=== PATIENT | female | born 1955 ===

== ENCOUNTER → 2024-05-21 14:26 | Outpatient (REF) | payer MEDICARE, SELFPAY | LOC: RAD 14:26 | PROVIDERS: ATTENDING PHYSICIAN Family Medicine; REFERRING PHYSICIAN Orthopaedic Surgery | DX: M25.561 Pain in right knee (principal) | CPT/HCPCS: 73564 ==

== ENCOUNTER 2024-10-05 11:56 | Emergency (ER) | payer MEDICARE, SELFPAY ==
[2024-10-05 12:00] VITALS: BP 118/61
[2024-10-05 12:29] LABS: % Basophils 0.5 % (0-2); % Eosinophils 1.4 % (0-6); % Immature Granulocytes 0.5 % (0-0.5); % Lymphocytes 30.4 % (20.5-51.1); % Monocytes 4.1 % (1.7-9.3); % Neutrophils 63.1 % (42.2-75.2); Absolute Eosinophils 0.1 10^3/uL (0-0.7); Absolute Lymphocytes 1.3 10^3/uL (1.2-3.4); Absolute Monocytes 0.2 10^3/uL (0.1-0.6); Absolute Neutrophils 2.8 10^3/uL (1.4-6.5); Hematocrit 36.3 % (37.0-47.0); Hemoglobin 11.5 g/dL (12.0-16.0); Mean Corp Hgb Conc. 31.7 g/dL (33.0-37.0); Mean Corpuscular Hgb 30.3 pg (27.0-31.0); Mean Corpuscular Volume 95.8 fL (81.0-99.0); Mean Platelet Volume 9.4 fL (7.4-10.4); Nucleated Red Blood Cells % 0 %; Platelet Count 288 10^3/uL (130-400); Red Blood Cell Count 3.79 10^6/uL (4.20-5.40); Red Cell Dist. Width 14.2 % (11.5-14.5); White Blood Cell Count 4.4 10^3/uL (4.8-10.8)
[2024-10-05 12:39] LABS: ALT (SGPT) 27 U/L (0-35); AST (SGOT) 32 U/L (14-36); Albumin 2.8 g/dl (3.5-5.0); Alkaline Phosphatase 147 U/L (38-126); Blood Urea Nitrogen 13 mg/dl (7-17); Calcium 8.4 mg/dl (8.4-10.2); Carbon Dioxide 28 mmol/L (22-30); Chloride 105 mmol/L (98-107); Glucose 100 mg/dl (70-99); Lipase 108 U/L (23-300); Potassium 3.2 mmol/L (3.5-5.1); Sodium 140 mmol/L (135-145); Total Bilirubin 0.4 mg/dl (0.2-1.3); eGFR > 60.00
--- NOTE | 2024-10-05 13:55 | ED.GENMED ---
History of Present Illness
General
Chief Complaint: Weakness
Time Seen by Provider: 10/05/24 13:38
History of Present Illness
History of Present Illness:
69-year-old female presenting with generalized fatigue worsening for the past 1 week. Patient reports shortness of breath with exertion, unable to walk upstairs now for the past 2 weeks. Patient denies chest pain. Patient reports episodes of
waking up at 3 AM with chills, diaphoresis and subjective fever. Patient states that she coughs at the time. Patient states that when she wakes up in the morning symptoms resolved but continues to have myalgias and generalized fatigue. Patient
reports history of anemia for which she receives iron infusions most recently in July 2024. Patient states that she had labs drawn on October 01 showing hemoglobin of 10.5. Patient reports 40 pound unintentional weight loss over the past 6
months. Patient states that her last colonoscopy was 4 years ago, unremarkable. Patient denies any black or bloody stools and no vaginal bleeding. Patient states that she took a COVID test which was negative yesterday. Patient states that she
had a full cardiac workup in March 2024 including cardiac catheterization which was negative, no cardiac stents placed. Hematology: Dr. Jeong
Phy Exam
Physical Exam
Physical Exam:
General: Alert, no acute distress
Head: NCAT
Eyes: clear conjunctiva
Neck: supple
Cardiac: regular rate and rhythm, no murmur
Lungs: clear to auscultation bilaterally. No wheezes, rales, or rhonchi. Speaking full unlabored sentences. No respiratory distress.
Abdomen: soft, nondistended nontender. No rebound or guarding.
MSK: no lower extremity edema bilaterally. No deformity
Skin: warm, dry
Neuro: Alert and oriented x3. no focal deficits
Course
Orders/Labs/Results
Orders:
Orders
10/05/24 12:04
Electrocardiogram (*1) Urgent
Reason for Study: Shortness of Breath
10/05/24 12:05
EKG- Treatment ONCE
10/05/24 12:08
Complete Blood Count/With Diff Urgent
Comprehensive Metabolic Panel Urgent
Lipase Urgent
10/05/24 13:53
0.9% Sodium Chloride 1000 ml [Nss] 1,000 ml IV BOLUS
CXR2 [CR Chest - 2 Views ] Urgent
Comment:
Reason For Exam: sob
10/05/24 13:55
Ondansetron Injectable [Zofran] 4 mg IV NOW STA
Potassium Chloride [KCl] 40 meq PO NOW STA
10/05/24 14:12
DDimer [D-Dimer] Urgent
Troponin I Urgent
UA Reflex to Culture [Urinalysis Reflex To Culture] Urgent
Date Specimen was Collected: 10/05/24
Time Specimen was Collected: 14:08
Urine Microscopic Reflex Cult Urgent
Influenza A+B Rapid Molecular Urgent
AARON Source: Nasal Swab
Specimen Description:
Urine Culture Urgent
AARON Source: U
Specimen Description:
Obtained by: Random
Date Specimen was Collected: 10/05/24
Time Specimen was Collected: 14:08
10/05/24 15:31
Cephalexin Monohydrate [Keflex] 500 mg PO NOW STA
Abnormal Lab Results
10/05/24 10/05/24
12:08 14:12
WBC 4.4 L 10^3/uL
(4.8-10.8)
RBC 3.79 L 10^6/uL
(4.20-5.40)
Hgb 11.5 L g/dL
(12.0-16.0)
Hct 36.3 L %
(37.0-47.0)
MCHC 31.7 L g/dL
(33.0-37.0)
Potassium 3.2 L mmol/L
(3.5-5.1)
Glucose 100 H mg/dl
(70-99)
Alkaline Phosphatase 147 H U/L
(38-126)
Total Protein 5.0 L g/dl
(6.3-8.2)
Albumin 2.8 L g/dl
(3.5-5.0)
Urine Ketones Trace A
(Negative)
Urine Nitrite (Reflex) Positive A
(Negative)
Urine Bilirubin 2+ A
(Negative)
Leukocyte Esterase Rfl Trace A
(Negative)
Urine Bacteria (Reflex) Moderate A
(Negative)
10/05/24 12:08
10/05/24 12:08
Vital Signs
Initial and Last Documented VS:
Initial Vital Signs
Temp Pulse Resp BP Pulse Ox
97.8 F 76 16 118/61 98
10/05/24 12:00 10/05/24 12:00 10/05/24 12:00 10/05/24 12:00 10/05/24 12:00
Last Documented Vital Signs
Temp Pulse Resp BP Pulse Ox
97.8 F 75 22 143/86 99
10/05/24 12:00 10/05/24 14:30 10/05/24 14:30 10/05/24 14:14 10/05/24 14:30
MDM/Problems Addressed
Differential Diagnosis Includes:
Anemia, electrolyte abnormality, UTI, influenza, viral syndrome, pneumonia, PE, malignancy
MDM/Problems Addressed:
Labs reviewed. Hemoglobin 11.5 (was 10.5 4 days ago). D-dimer within normal limits, low suspicion for PE. Mild hypokalemia with potassium 3.2. UA consistent with UTI. Chest x-ray clear no focal infiltrate or consolidation. Influenza negative.
Will start on Keflex for UTI. Vital signs within normal limits. Discussed results with pt at bedside. Ambulatory with steady gait. Stable for discharge with PCP follow-up
*Critical Care Note
Total Time (30-74mins, 75-104mins- exclusive of procedures): Not Applicable
ED Attending Note
-
Portions of this chart may have been created with voice recognition software.� Occasional wrong word or��sound alike� substitutions may have occurred due to the inherent limitations of voice recognition software.
Discharge Plan
Departure
Patient Disposition: Home (Routine Discharge)
Date of Disposition: 10/05/24
Time of Disposition: 15:50
Patient with high blood pressure during this ER visit?: Yes
Discharge Problem:
Acute UTI
Instructions: Urinary Tract Infection, Adult ED, BLOOD PRESSURE
Prescriptions:
New
cephalexin 500 mg capsule
500 mg PO TID 7 Days Qty: 21 0RF
Referrals:
Raghav Vizcarra, DO [Family Provider] -
Activity Restrictions/Additional Instructions:
Take Keflex 3 times daily for 7 days
Follow up with primary care doctor in 1-2 days
Return to the emergency department for fever, persistent vomiting, or new/worsening symptoms
Interventions
Interventions:
*Risk Screen - Suicide Last Done: 10/05/24 14:34
*General Assessment Last Done: 10/05/24 14:34
*Neglect/Abuse Screening Last Done: 10/05/24 14:34
ED- Fall Risk Assessment Last Done: 10/05/24 14:34
*ED COVID-19 Vaccine History Last Done: 10/05/24 14:34
*Nursing Disposition Last Done: 10/05/24 16:00
ED- Cardiac Assessment Last Done: 10/05/24 14:34
ED- Neurological Assessment Last Done: 10/05/24 14:34
ED- Pulmonary Assessment Last Done: 10/05/24 14:34
Discharge Date and Time
Discharge Date/Time: 10/05/24 16:01
Print Language: SWAZI
[2024-10-05 14:12] VITALS: BMI 29.9
[2024-10-05 14:14] VITALS: BP 143/86
[2024-10-05] MEDS: KCL 40 MEQ PO (14:27)
[2024-10-05] MEDS: ZOFRAN 4 MG IV (14:27)
[2024-10-05] MEDS: NSS 1000 IV (14:27)
[2024-10-05 14:53] LABS: Urine Albumin Trace (Neg - Trace); Urine Bilirubin 2+ (Negative); Urine Character Clear (Clear); Urine Color Amber; Urine Glucose Negative (Negative); Urine Ketone Trace (Negative); Urine Leukocyte Trace (Negative); Urine Nitrite Positive (Negative); Urine Occult Blood Negative (Negative); Urine Specific Gravity 1.015 (<1.030); Urine Urobilinogen 1+ (Neg - 1+)
[2024-10-05 14:57] LABS: D-Dimer 0.45 ug/mlFEU (0.00-0.50)
[2024-10-05 15:21] LABS: Urine Mucus Many
[2024-10-05 15:23] LABS: Urine Red Blood Cell 0-2 /HPF (0-2)
[2024-10-05 15:24] LABS: Urine Bacteria Moderate (Negative); Urine Calcium Oxalate Crystals Seen; Urine White Cell 0-2 /HPF (0-5)
[2024-10-05 15:35] LABS: Troponin I 0.027 ng/ml
[2024-10-05] MEDS: KEFLEX 500 MG PO (15:56)
== END 2024-10-05 16:01 | disposition home or self-care (01) ==
LOC: EMR 11:56
PROVIDERS: Emergency Medicine; EMERGENCY PHYSICIAN Emergency Medicine; FAMILY PHYSICIAN Family Medicine
DX: N39.0 Urinary tract infection, site not specified (principal); E87.6 Hypokalemia
CPT/HCPCS: 99283; 96374; 96361; 71046; 80053; 81003; 81015; 83690; 84484; 85025; 85379; 87086; 87502; 93005

== ENCOUNTER 2024-10-25 07:03 | Inpatient (IN) | payer MEDICARE, SELFPAY ==
[2024-10-20] VITALS (9 sets, daily range): BP systolic 116–156; BP diastolic 60–78; BMI 29.2; BMI 28.7
[2024-10-20 13:07] LABS: % Basophils 1.4 % (0-2); % Eosinophils 1.2 % (0-6); % Immature Granulocytes 0.4 % (0-0.5); % Lymphocytes 42.3 % (20.5-51.1); % Neutrophils 48.7 % (42.2-75.2); Absolute Basophils 0.1 10^3/uL (0-0.2); Absolute Eosinophils 0.1 10^3/uL (0-0.7); Absolute Lymphocytes 2.4 10^3/uL (1.2-3.4); Absolute Monocytes 0.3 10^3/uL (0.1-0.6); Absolute Neutrophils 2.8 10^3/uL (1.4-6.5); Hematocrit 37.4 % (37.0-47.0); Hemoglobin 12.3 g/dL (12.0-16.0); Mean Corp Hgb Conc. 32.9 g/dL (33.0-37.0); Mean Corpuscular Hgb 30.9 pg (27.0-31.0); Mean Platelet Volume 9.7 fL (7.4-10.4); Nucleated Red Blood Cells % 0 %; Platelet Count 291 10^3/uL (130-400); Red Blood Cell Count 3.98 10^6/uL (4.20-5.40); Red Cell Dist. Width 13.2 % (11.5-14.5); White Blood Cell Count 5.7 10^3/uL (4.8-10.8)
[2024-10-20 13:23] LABS: ALT (SGPT) 35 U/L (0-35); AST (SGOT) 49 U/L (14-36); Albumin 2.8 g/dl (3.5-5.0); Alkaline Phosphatase 161 U/L (38-126); Blood Urea Nitrogen 16 mg/dl (7-17); Calcium 8.5 mg/dl (8.4-10.2); Carbon Dioxide 26 mmol/L (22-30); Chloride 103 mmol/L (98-107); Glucose 111 mg/dl (70-99); Potassium 4.1 mmol/L (3.5-5.1); Sodium 135 mmol/L (135-145); Total Bilirubin 0.4 mg/dl (0.2-1.3); Total Protein 5.2 g/dl (6.3-8.2); eGFR 55.07
[2024-10-20 13:54] LABS: TSH Reflex To Free T4 0.02 uIU/ml (0.47-4.68)
[2024-10-20 14:23] LABS: Free T4 1.42 ng/dl (0.78-2.19)
--- NOTE | 2024-10-20 15:25 | ED.GENMED ---
History of Present Illness
General
Chief Complaint: Fainting/Passed Out
Time Seen by Provider: 10/20/24 15:14
History of Present Illness
History of Present Illness:
69-year-old woman with history of hypothyroidism, anemia presenting to the emergency department with nausea vomiting and a syncopal event. Patient states that this has been ongoing for a few weeks now. She states for the past month she has lost
about 10 pounds. She has minimal appetite with several episodes of nausea and vomiting. She states that she did not have any episodes today but did have some yesterday. No diarrhea. She did go to her primary care doctor who checked some blood
work and was unremarkable. She also states that she is been having frequent episodes of syncope. She has passed out 3 times this week. Usually she has a prodrome that includes a tunnel vision before she syncopized this however today she only
noticed that her legs were about to give out and then she fell from standing. She did not think she hit her head today however noticed a sore spot on the top of her head. She was able to get up afterwards. No confusion after the event. However
patient does note that occasionally throughout the month she has had some word finding difficulty. No numbness tingling to the extremities. No isolated extremity weakness during those events. No fevers chills. No chest pain.
Phy Exam
Physical Exam
Physical Exam:
GENERAL: in no acute distress, appears pale
HEENT: normocephalic, extraocular movements intact, moist oral mucosa
NECK: normal inspection
RESPIRATORY: no respiratory distress, clear to auscultation bilaterally
CARDIOVASCULAR: regular rate and rhythm
ABDOMEN/: soft, non-distended, non-tender to palpation, no rebound or guarding
EXTREMITIES: non-tender, no edema/swelling
NEUROLOGIC: awake and alert, moves all extremities, equal strength in upper and lower extremities, sensation intact, pupils equal and reactive bilaterally
SKIN: warm
Course
Orders/Labs/Results
Orders:
Orders
10/20/24 12:36
Electrocardiogram (*1) Urgent
Reason for Study: Syncope
EKG- Treatment ONCE
10/20/24 13:00
Type+Screen Urgent
Complete Blood Count/With Diff Urgent
Comprehensive Metabolic Panel Urgent
Free T4 Urgent
TSH Reflex To Free T4 Urgent
10/20/24 13:08
ABO2 Urgent
BBK Wristband Number:
Associate notified that ABO2 has been ordered: [id number]
Date: 10/20/24
Time: 13:09
Telegraph Inspector ID: [id number]
10/20/24 15:25
CT Abd/pelvis W Iv Cont Urgent
Comment:
Reason For Exam: nausea, vomitting, decrease PO
CT Head W/o Iv Contrast Urgent
Comment:
Reason For Exam: fall
0.9% Sodium Chloride 1000 ml [Nss] 1,000 ml IV BOLUS
10/20/24 15:33
Urinalysis Reflex To Culture Urgent
Date Specimen was Collected: 10/20/24
Time Specimen was Collected: 15:18
Urine Microscopic Reflex Cult Urgent
Abnormal Lab Results
10/20/24 10/20/24
13:00 15:33
RBC 3.98 L 10^6/uL
(4.20-5.40)
MCHC 32.9 L g/dL
(33.0-37.0)
Creatinine 1.1 H mg/dL
(0.6-1.0)
Glucose 111 H mg/dl
(70-99)
AST 49 H U/L
(14-36)
Alkaline Phosphatase 161 H U/L
(38-126)
Total Protein 5.2 L g/dl
(6.3-8.2)
Albumin 2.8 L g/dl
(3.5-5.0)
TSH (Reflex) 0.02 L uIU/ml
(0.47-4.68)
Urine Ketones Trace A
(Negative)
Urine Bilirubin 1+ A
(Negative)
Urine Urobilinogen 3+ A
(Neg - 1+)
Leukocyte Esterase Rfl Trace A
(Negative)
Urine RBC 3-6 A /HPF
(0-2)
Urine Bacteria (Reflex) Few A
(Negative)
10/20/24 13:00
10/20/24 13:00
Vital Signs
Initial and Last Documented VS:
Initial Vital Signs
Temp Pulse Resp BP Pulse Ox
98 F 78 18 128/67 97
10/20/24 12:45 10/20/24 12:45 10/20/24 12:45 10/20/24 12:45 10/20/24 12:45
Last Documented Vital Signs
Temp Pulse Resp BP Pulse Ox
98 F 78 18 117/61 96
10/20/24 12:45 10/20/24 12:45 10/20/24 12:45 10/20/24 16:00 10/20/24 16:00
MDM/Problems Addressed
Differential Diagnosis Includes:
Patient is a 69-year-old woman presenting to the emergency department with many weeks worth of nausea vomiting weight loss and now syncope. Vitals are unremarkable and exam does show woman who is slightly pale appearing but does have a benign soft
abdomen. Differential is broad but consists of malignancy versus metabolic derangement versus anemia versus UTI. Syncope could be related to orthostatic given that she usually has a prodrome and they occur from changes in position however today
was without a prodrome. Given the word finding difficulty episodes concern for TIA as well. Will check blood work urine EKG CT scan of the head as well as CT abdomen. Will give IV fluids.
*Critical Care Note
Total Time (30-74mins, 75-104mins- exclusive of procedures): Not Applicable
Update Note
Update Note:
Blood work notable for hemoglobin of 12.3 which is improved from prior. Creatinine is similar to prior as well. EKG per my interpretation normal sinus rhythm
CT scan of the head unremarkable CT scan of the abdomen without any acute findings. Given the syncope without prodrome and the word finding difficulty patient would benefit from admission. Of note patient does state that this with the word finding
difficulty has happened once before but she did not have a workup done for it. Discussed with hospitalist who excepted patient to their service
ED Attending Note
-
Portions of this chart may have been created with voice recognition software.� Occasional wrong word or��sound alike� substitutions may have occurred due to the inherent limitations of voice recognition software.
Discharge Plan
Departure
Patient Disposition: Admit
Date of Disposition: 10/20/24
Time of Disposition: 17:21
Presentation/result/management discussed w/ accepting MD/DO: Hospitalist
Discharge Problem:
Syncope, Word finding difficulty
Prescriptions:
No Action
cephalexin 500 mg capsule
500 mg PO TID 7 Days Qty: 21 0RF
Referrals:
Raghav Vizcarra DO [Family Provider] -
Interventions
Interventions:
*Risk Screen - Suicide Last Done: 10/20/24 15:11
*General Assessment Last Done: 10/20/24 15:11
*Neglect/Abuse Screening Last Done: 10/20/24 15:11
ED- Fall Risk Assessment Last Done: 10/20/24 15:11
*ED COVID-19 Vaccine History Last Done: 10/20/24 15:11
ED- Cardiac Assessment Last Done: 10/20/24 15:11
ED- Neurological Assessment Last Done: 10/20/24 15:11
Discharge Date and Time
Print Language: BOLIVIAN
[2024-10-20] MEDS: NSS 1000 IV ×2 (15:33→20:06)
[2024-10-20 15:44] LABS: Urine Albumin Trace (Neg - Trace); Urine Bilirubin 1+ (Negative); Urine Character Clear (Clear); Urine Color Yellow; Urine Glucose Negative (Negative); Urine Ketone Trace (Negative); Urine Leukocyte Trace (Negative); Urine Nitrite Negative (Negative); Urine Occult Blood Negative (Negative); Urine Specific Gravity 1.015 (<1.030); Urine Urobilinogen 3+ (Neg - 1+)
[2024-10-20 15:50] LABS: Urine Mucus Moderate
[2024-10-20 15:51] LABS: Urine Urothelial Cell 0-2 /LPF (FEW)
[2024-10-20 15:52] LABS: Urine Bacteria Few (Negative)
--- NOTE | 2024-10-20 17:51 | HPS.HSE ---
Family Physician
-
Family Physician: Raghav Vizcarra
Chief Complaint
-
syncope, N/V, abnormal speech
History of Present Illness
69F HX hypothyroidism, anemia seen at ER
- acute onset of with several episodes of nausea and vomiting. No diarrhea. Poor appetite
- has been ongoing for a few weeks
- associated with frequent episodes of syncope; passed out 3 times this week.
- reports prodrome sx preeceded by tunnel vision before she syncopized
- however today she only noticed that her legs were about to give out and then she fell from standing
- No confusion after the event
- did not think she hit her head today however noticed a sore spot on the top of her head.
- lost about 10 pounds ovr 1 month
- minimal appetite
- occasionally throughout the month she has had some word finding difficulty.
- No numbness tingling to the extremities.
- No isolated extremity weakness during those events.
Medical History
Past Medical History
Past Medical History: Reports Hypothyroidism
Past Surgical History: Reports None
Social History
Tobacco: Non-smoker
Alcohol: Other
Family History
Family History: Not pertinent
Allergies / Home Medications
Allergies reflects when Allergies were last updated in [facility].
Home Medications with original date entered in [facility]
Allergy/Medication List:
Allergies
Allergy/AdvReac Type Severity Reaction Status Date / Time
No Known Allergies Allergy Verified 10/05/24 12:04
Home Medications
[id number]-[id number]-kvyuymkj 250 mg-250 mg-65 mg tablet (Excedrin Migraine) 2 tab PO Q6HPRN PRN headache 10/20/24
cyanocobalamin (vitamin B-12) 1,000 mcg/mL injection solution 1,000 mcg SC WE 10/20/24
desvenlafaxine succinate 50 mg tablet,extended release 24 hr 50 mg PO HS 10/20/24
diazepam 5 mg tablet 5 mg PO HSPRN PRN restless leg 10/20/24
levothyroxine 150 mcg tablet 150 mcg PO DAILY 10/20/24
magnesium oxide 250 mg PO HS 10/20/24
melatonin 10 mg tablet 10 mg PO HS 10/20/24
pantoprazole 40 mg tablet,delayed release 40 mg PO HS 10/20/24
riboflavin (vitamin B2) 100 mg tablet 100 mg PO DAILY 10/20/24
rizatriptan 10 mg tablet 10 mg PO DAILYPRN PRN headache 10/20/24
Review of Systems
-
Constitutional: Reports No Symptoms
EENT: Reports No Symptoms
Respiratory: Reports No Symptoms
Cardiac: Reports No Symptoms
Abdomen/GI: Reports No Symptoms
: Reports No Symptoms
Musculoskeletal: Reports No Symptoms
Skin: Reports No Symptoms
Neurological: Reports No Symptoms
Endocrine: Reports No Symptoms
Hematologic/Lymphatic: Reports No Symptoms
Psych: Reports No Symptoms
Physical Exam
Vital Signs
Vital Signs
Temp Pulse Resp BP Pulse Ox
98 F 78 18 117/61 96
10/20/24 12:45 10/20/24 12:45 10/20/24 12:45 10/20/24 16:00 10/20/24 16:00
Physical Exam
General: Well Developed, Well Nourished and No Apparent Distress
HEENT: NormoCephalic, Moist mucous membranes and Atraumatic
Respiratory: Clear
Cardiac: S1/S2 and Regular Rhythm; No Murmur or Rub
GI: Soft, Non Tender, Non Distended and Normal Bowel Sounds; No Organomegaly
Rectal: Deferred by Provider
Musculoskeletal: No Clubbing, No Cyanosis and No Edema
Skin: No Rash
Neuro: Nonfocal/grossly intact
Psych: Calm
Laboratory Results
-
10/20/24 13:00
10/20/24 13:00
Laboratory Results
Total Bilirubin 0.4 mg/dl (0.2-1.3) 10/20/24 13:00
AST 49 U/L (14-36) H 10/20/24 13:00
ALT 35 U/L (0-35) 10/20/24 13:00
Alkaline Phosphatase 161 U/L (38-126) H 10/20/24 13:00
Data Reviewed
-
CT Scan: Report Reviewed by me
Lab Data: Labs Reviewed by me
Impression/Plan
-
Vital Signs
Temp Pulse Resp BP Pulse Ox
98 F 78 18 132/73 97
10/20/24 12:45 10/20/24 12:45 10/20/24 12:45 10/20/24 17:11 10/20/24 17:45
Laboratory Tests
10/05/24 10/20/24
12:08 13:00
WBC 5.7
Hgb 12.3
Plt Count 291
Creatinine 1.0 1.1 H
eGFR > 60.00 55.07
AST 49 H
ALT 35
Alkaline Phosphatase 161 H
Total Protein 5.2 L
Albumin 2.8 L
TSH (Reflex) 0.02 L
EKG
NORMAL SINUS RHYTHM
NORMAL ECG
WHEN COMPARED WITH ECG OF 05-OCT-2024 12:14,
NO SIGNIFICANT CHANGE WAS FOUND
Confirmed by JOSE C AQUINO MD ([id number]) on 10/20/2024 3:41:25 PM
10/20/24 HCT: No acute intracranial abnormality noted.
10/20/24 CT AP W Iv Cont: Postoperative changes of prior gastric bypass without evidence of obstruction. Small hiatal hernia.
NO PRIOR hospitalist admission:
ASSESSMENT & PLAN
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
NO Diarrhea:
HX gastric bypass surgery WITHOUT CT AP evidence of obstruction
Has small hiatal hernia
- check UDS
- check Noro virus
- Clear diet
-IV NS @ 80/H
- PRN Zofran
KATHI due to dehydration for N/V
- Trend Cr in AM in response to IVF
Recurrent syncope with prodromal symptoms preceded by tunnel vision before she syncopized
Unremarkable EKG. NEG HCT
Suspect vasovagal syncope associated with dehydration
- Ortho VSS
- cont IVF NS
- Fall precaution
- TLM Monitor
- ECHO in AM to eval for valvular pathology
Transient word finding difficulty that happened a few days ago
Low suspicion for acute CVA
- NEG HCT
- No numbness tingling to the extremities.
- No isolated extremity weakness during those events.
- Brain MRI in AM - Neuro consult ONLY IF POS brain MRI for acute CVA
- Speech consult
Suppressed TSH on LT4 150 mcgs daily
HX Hypothyroid
- FT4 and FT3
- De escalade LT4 to 150 mcg daily except Friday
- Repeat TSH in 4 - 6 week
Chr insomnia
- cont all OP Meds
DVT Px: SCD
Full code
Obs TLM
[2024-10-20 19:13] LABS: Amphetamines Negative (Negative); Barbiturates Negative (Negative); Benzodiazepines Positive (Negative); Buprenorphine Negative (Negative); Cocaine Negative (Negative); Marijuana Negative (Negative); Methadone Negative (Negative); Methamphetamines Negative (Negative); Opiates Positive (Negative); Phencyclidine Negative (Negative); Tricyclic Antidepressants Negative (Negative)
[2024-10-20 19:28] LABS: Fentanyl, Urine Negative (Negative)
[2024-10-20] MEDS: MAGNESIUM OXIDE 250 MG PO (21:51)
[2024-10-20] MEDS: MELATONIN 10 MG PO (21:52)
[2024-10-20] MEDS: PROTONIX 40 MG PO (21:52)
[2024-10-20] MEDS: PRISTIQ 50 MG PO (21:53)
--- NOTE | 2024-10-20 22:15 | PTCARENOTE ---
Pt admitted to rm 316-1 and walked from stretcher to bed w/ x1 assist. Pt aaox3, VSS, and no c/o pain. This RN informed pt that she will be using a bsc w/ staff assistance for toileting d/t syncopal episodes. Pt UDS (+) for oxycodone. During
admission questions, this RN comleted the addictive drug misuse Risk screen. Pt informed this RN that she takes oxy for migraines. This RN asked pt if she has a prescription and pt said 'It's old. I just have them in my house'. Pt unable to tell
this RN the dose of the oxycodone and states 'I take it occasionally'. Pt changed subject and did not seem open to talking about it further. This RN educated pt on the reason for staff knowing which medications she takes because they could be
potentially causing her symptoms. VIDYA notified. Call fong within reach, and plan of care ongoing.
[2024-10-21 00:21] VITALS: BMI 28.7
[2024-10-21 03:10] VITALS: BP 150/71
[2024-10-21] MEDS: SYNTHROID 150 MCG PO (05:22)
[2024-10-21 06:40] LABS: Hematocrit 35.9 % (37.0-47.0); Hemoglobin 11.7 g/dL (12.0-16.0); Mean Corp Hgb Conc. 32.6 g/dL (33.0-37.0); Mean Corpuscular Hgb 30.9 pg (27.0-31.0); Mean Corpuscular Volume 94.7 fL (81.0-99.0); Mean Platelet Volume 10.4 fL (7.4-10.4); Platelet Count 216 10^3/uL (130-400); Red Blood Cell Count 3.79 10^6/uL (4.20-5.40); Red Cell Dist. Width 13.1 % (11.5-14.5); White Blood Cell Count 3.5 10^3/uL (4.8-10.8)
[2024-10-21 07:07] LABS: Blood Urea Nitrogen 10 mg/dl (7-17); Calcium 8.2 mg/dl (8.4-10.2); Carbon Dioxide 28 mmol/L (22-30); Chloride 106 mmol/L (98-107); Estimated Creatinine Clearance 65 ml/min; Glucose 93 mg/dl (70-99); Potassium 3.5 mmol/L (3.5-5.1); Sodium 138 mmol/L (135-145); eGFR > 60.00
[2024-10-21 07:24] LABS: Free T3 4.39 pg/ml (2.77-5.27)
[2024-10-21 07:30] VITALS: BP 153/75
[2024-10-21 07:38] LABS: TSH Reflex To Free T4 0.02 uIU/ml (0.47-4.68)
[2024-10-21 08:06] LABS: Hepatitis C Antibody Negative (Negative)
[2024-10-21] MEDS: ZOFRAN 4 MG IV ×2 (09:10→17:43)
[2024-10-21] MEDS: TYLENOL 650 MG PO ×2 (09:10→12:40)
[2024-10-21] MEDS: NSS 1000 IV (11:07)
--- NOTE | 2024-10-21 11:18 | W.PN.HOSP.TC ---
Today's Communication/Plan
-
Continue IVF
GI consult pending
MRI done, but results pending.
Assessment / Plan
Assessment / Plan
69 woman with nausea, vomiting, syncope and weight loss
1. Acute gastritis-like symptoms with several N/V , Diff etiology: Viral vs. other process (THC neg)
NO Diarrhea, HX gastric bypass surgery WITHOUT CT AP evidence of obstruction, Has small hiatal hernia
TSH 0.02
- check Noro virus
- Clear diet
-IV NS @ 80/H
- PRN Zofran
- GI consult
2. KATHI due to dehydration for N/V - resolving
- Trend Cr in AM daily in response to IVF, so far 1.1--> 0.9
3. Recurrent syncope with prodromal symptoms preceded by tunnel vision before she syncopizes
Unremarkable EKG. NEG Head CT. Suspect vasovagal syncope associated with dehydration.
- Ortho VSS
- cont IVF NS
- Fall precaution
- TLM Monitor
- ECHO to eval for valvular pathology
4. Transient word finding difficulty that happened a few days ago
Low suspicion for acute CVA
- NEG HCT
- No numbness tingling to the extremities.
- No isolated extremity weakness during those events.
- Brain MRI in AM - Neuro consult if POS brain MRI for acute CVA
- Speech consult
5. Suppressed TSH on LT4 150 mcgs daily, with HX Hypothyroid
- FT4 and FT3 wnr
- Reduce LT4 to 150 mcg daily except Friday
- Repeat TSH in 4 - 6 week
6. Chr insomnia
- cont all OP Meds
DVT Px: SCD
Full code
Anticipated Discharge: > 48 hours
Subjective/Interval History
-
Date of Service: October 21, 2024
Continues to have nausea and weakness unchanged.
Objective Data
-
Labs:
Laboratory Results
10/21/24
05:46
WBC 3.5 L
Hgb 11.7 L
Hct 35.9 L
Plt Count 216 D
Sodium 138
Potassium 3.5
Chloride 106
Carbon Dioxide 28
BUN 10
Creatinine 0.9
Glucose 93
Calcium 8.2 L
Vital Signs:
Vital Signs
Temp Pulse Resp BP Pulse Ox
98.3 F 80 16 153/75 98
10/21/24 07:30 10/21/24 07:30 10/21/24 07:30 10/21/24 07:30 10/21/24 07:30
Review of Systems
-
History Source: Patient
All other systems: Reviewed and negative
Physical Exam
-
General: Well Developed, Well Nourished, Comfortable and Appears Chronically Ill
HEENT: Normocephalic, Nose Appears Normal and Ears Appear Normal
Respiratory: Clear to Auscultation
Cardiac: Regular Rhythm and S1/S2
GI: Soft, Nontender and Nondistended
Musculoskeletal: No Clubbing, No Cyanosis and No Edema
Skin: Warm and Dry
Neuro: Awake, Alert, Oriented and AO x 3
Psych: Calm
Data Reviewed
-
Labs: Labs Reviewed by me
[2024-10-21 11:45] VITALS: BP 144/81; BP 148/78; PULSE 78; PULSE 95
--- NOTE | 2024-10-21 12:38 | PTCARENOTE ---
Pt c/o continued headache and nausea. made aware, new orders provided, see MAR.
[2024-10-21] MEDS: TYLENOL PO (14:11)
--- NOTE | 2024-10-21 14:19 | PTCARENOTE ---
Pt c/o unrelieved nausea. made aware, new order provided, see MAR.
[2024-10-21] MEDS: PHENERGAN 25 MG PO (14:28)
[2024-10-21 15:45] VITALS: BP 164/69
--- NOTE | 2024-10-21 16:34 | CON.GI ---
Addendum entered and electronically signed by Seamus Calix MD 10/21/24 17:39:
I saw and examined the patient.
The SHOP ESTIMATOR or PA's note was reviewed and I agree with the note.
Comment:
Pt with a hx of iron def, hypothyroid, gastric bypass admitted with weakness, syncope, nausea, weight loss. has hx of large colon polyp removal 4 yrs ago. no hx of egd in last few decades
abd: soft, nontender
impression
iron def anemia (known)
weight loss
hx of large polyp
decreased appetite
plan:
EGD in am
eventual elective colonoscopy
follow labs
Original Note:
Consultation
-
Date/Time Consultation Requested: 10/21/24 1126
Date/Time Consultation Performed: 10/21/24 1500
Requesting Provider: Dr. Conn
Performing Provider: Dr. Calix/VIDYA Casey
Reason for Consultation: weight loss/nausea
Medical History
Chief Complaint / HPI
Chief Complaint: syncope, N/V, abnormal speech
History of Present Illness:
69-year-old female with past medical history of hypothyroid, migraines, restless leg syndrome, hypothyroidism, iron deficiency anemia and syncope that was being worked up since January of last year presents to the emergency room with syncope, weakness
with the inability to walk stating that her legs felt heavy, difficulty word finding, nausea with vomiting x 2 days and weight loss. Asked to evaluate for nausea, vomiting and weight loss. The patient was seen in the emergency room on 10/05/2024
for generalized fatigue, shortness of breath with exertion chills and subjective fever. She was treated for UTI and sent home with a prescription for Keflex. The patient has been following with her PCP and has followed with cardiology since last
January for syncope. She had cardiac evaluation with cardiac catheterization for syncope. The patient tells me that this was ' negative'. She states she has a history of migraines and utilizes Excedrin Migraine, she states that this has become more
frequent lately. She takes 2 tablets every 6 hours as needed. She utilizes this at least 4 days out of the week. 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 If she does not use
Excedrin Migraine then she performs a step up approach with either sumatriptan or rizatriptan. She utilizes that 3-4 times a week. And then also utilizes Vicodin approximately 3 times a week. She states she also uses diazepam for restless leg
syndrome. She has noticed recently that she has not had much of an appetite. She has noticed an increase in weight loss. I did review prior records from January 2024 where her weight was 20 pounds less then her current weight. She states that over
the past couple days she was not able to tolerate chicken and rice soup. She states that she was able to tolerate clear liquids however no food with any kind of substances such as rice. She denies any fevers, chills, diarrhea, abdominal pain,
melena, hematochezia, dysphagia or odynophagia. Her last colonoscopy was approximately [address] Rico watson. She required EMR for a large polyp performed at [facility]. Her last EGD was 20 years ago prior to
her gastric bypass. The patient does not smoke. She does not drink any alcohol. At the present she is tolerating clear liquid diet without any difficulty. She has no abdominal pain. She has an outpatient appointment with Dr. Magana in January.
CT of the abdomen and pelvis with IV contrast shows small hiatal hernia. Scattered hypodensities within the right and left hepatic lobes likely representing cyst. Mild prominence of the extrahepatic bile ducts likely reservoir effect in the
setting of prior cholecystectomy. Mild pancreatic atrophy.
Past Medical History
Past Medical History: Hypothyroidism and Other (Migraines, restless leg syndrome, syncope, UTI, colon polyps, iron deficiency anemia)
Past Surgical History: Cholecystectomy and Other (Stephanie-en-Y gastric bypass)
Social History
Tobacco: Non-Smoker
Alcohol: None
Drug: Narcotics (Prescribed for migraines by PCP)
Family History
Family History: Other (No family history of gastrointestinal malignancy or IBD)
Allergies / Home Medications
Allergy/AdvReac Type Severity Reaction Status Date / Time
No Known Allergies Allergy Verified 10/05/24 12:04
�Medication �Instructions �Recorded
ycyknnd-npgehescxhrqj-gitdtzdq 250 2 tab PO Q6HPRN PRN headache 10/20/24
mg-250 mg-65 mg tablet (Excedrin
Migraine)
cyanocobalamin (vitamin B-12) 1,000 mcg SC WE Supplement 10/20/24
1,000 mcg/mL injection solution
desvenlafaxine succinate 50 mg 50 mg PO HS Mental Health/Anxiety 10/20/24
tablet,extended release 24 hr
diazepam 5 mg tablet 5 mg PO HSPRN PRN restless leg 10/20/24
levothyroxine 150 mcg tablet 150 mcg PO DAILY Thyroid 10/20/24
magnesium oxide 250 mg PO HS Electrolyte Repletion 10/20/24
melatonin 10 mg tablet 10 mg PO HS Sleep 10/20/24
pantoprazole 40 mg tablet,delayed 40 mg PO HS Gastrointestinal Issue 10/20/24
release
riboflavin (vitamin B2) 100 mg 100 mg PO DAILY Supplement 10/20/24
tablet
rizatriptan 10 mg tablet 10 mg PO DAILYPRN PRN headache 10/20/24
Review of Systems
-
All other systems: A 12 pt ROS was Negative except as stated above in HPI
Vital Signs
Temp Pulse Resp BP Pulse Ox
98.6 F 79 16 164/69 98
10/21/24 15:45 10/21/24 15:45 10/21/24 15:45 10/21/24 15:45 10/21/24 15:45
Physical Exam
Exam
General: No Apparent Distress
HEENT: Anicteric
Respiratory: Clear (Anterior)
Cardiac: Regular Rhythm
GI: Soft, Non Tender, Non Distended and Normal Bowel Sounds
Musculoskeletal: No Edema
Skin: Warm and Dry
Neuro: AO x 3
Psych: Calm
Results
WBC 3.5 10^3/uL (4.8-10.8) L 10/21/24 05:46
Hgb 11.7 g/dL (12.0-16.0) L 10/21/24 05:46
Hct 35.9 % (37.0-47.0) L 10/21/24 05:46
MCV 94.7 fL (81.0-99.0) 10/21/24 05:46
Plt Count 216 10^3/uL (130-400) D 10/21/24 05:46
Absolute Neuts (auto) 2.8 10^3/uL (1.4-6.5) 10/20/24 13:00
Sodium 138 mmol/L (135-145) 10/21/24 05:46
Potassium 3.5 mmol/L (3.5-5.1) 10/21/24 05:46
Chloride 106 mmol/L (98-107) 10/21/24 05:46
Carbon Dioxide 28 mmol/L (22-30) 10/21/24 05:46
BUN 10 mg/dl (7-17) 10/21/24 05:46
Creatinine 0.9 mg/dL (0.6-1.0) 10/21/24 05:46
Calcium 8.2 mg/dl (8.4-10.2) L 10/21/24 05:46
Total Bilirubin 0.4 mg/dl (0.2-1.3) 10/20/24 13:00
AST 49 U/L (14-36) H 10/20/24 13:00
ALT 35 U/L (0-35) 10/20/24 13:00
Alkaline Phosphatase 161 U/L (38-126) H 10/20/24 13:00
Hepatitis C Antibody Negative (Negative) 10/21/24 05:46
Diagnostic Image Results:
Prior GI Procedures:
EGD:
Colonoscopy:
Assessment / Plan
-
69-year-old female with past medical history of hypothyroid, migraines, restless leg syndrome, hypothyroidism, iron deficiency anemia and syncope that was being worked up since January of last year presents to the emergency room with syncope, weakness
with the inability to walk stating that her legs felt heavy, difficulty word finding, nausea with vomiting x 2 days and weight loss. Asked to evaluate for nausea, vomiting and weight loss. Patient using Excedrin Migraine (large volume of aspirin
in each dose, takes 4-5 times a week for many years in the setting of Stephanie-en-Y gastric bypass), recently placed on Keflex for UTI on 10/05/2024, also on medications for migraines including Vicodin and diazepam for RLS, pancreatic atrophy.
Impression:
Nausea/vomiting
Syncope
Weight loss (documented 20 pounds since January 2024)
Hypothyroidism
migraines
Anemia (follows with Dr. Tray Jeong)
Plan:
-EGD tomorrow
-Clear liquids today
-NPO after midnight
-Should follow back up with Neurology as has not seen in 3 yrs per patient.
-Recommend avoid NSAID (Excedrin Migraine, has 250 mg ASA per dose. Patient takes 2 at a time 4-5 days a week)
-Has follow up appointment with Dr. Magana in January.
-Further recommendations to be forthcoming
-
-
Thank you for consultation and allowing me to participate in the patient's care. Please call the implementation project coordinator GI physician during the after hours with any questions or concerns.
[2024-10-21 19:17] VITALS: BP 140/70
[2024-10-21] MEDS: MAGNESIUM OXIDE 250 MG PO (21:22)
[2024-10-21] MEDS: PROTONIX 40 MG PO (21:23)
[2024-10-21] MEDS: MELATONIN 10 MG PO (21:23)
[2024-10-21] MEDS: PRISTIQ 50 MG PO (21:28)
[2024-10-21] MEDS: ATIVAN 1 MG IV (21:34)
[2024-10-21] MEDS: NSS (PRESERVATIVE FREE) 0.5 ML IV (21:34)
[2024-10-21 23:36] VITALS: BP 143/76
[2024-10-22] VITALS (10 sets, daily range): BP systolic 20–146; BP diastolic 46–81
[2024-10-22] MEDS: NSS IV (05:15)
[2024-10-22] MEDS: SYNTHROID 150 MCG PO (05:31)
[2024-10-22 08:29] LABS: Hematocrit 33.5 % (37.0-47.0); Hemoglobin 11.2 g/dL (12.0-16.0); Mean Corp Hgb Conc. 33.4 g/dL (33.0-37.0); Mean Corpuscular Hgb 31.1 pg (27.0-31.0); Mean Corpuscular Volume 93.1 fL (81.0-99.0); Mean Platelet Volume 10.5 fL (7.4-10.4); Platelet Count 198 10^3/uL (130-400); Red Cell Dist. Width 13.1 % (11.5-14.5); White Blood Cell Count 3.4 10^3/uL (4.8-10.8)
[2024-10-22 10:33] LABS: Blood Urea Nitrogen 5 mg/dl (7-17); Calcium 8.4 mg/dl (8.4-10.2); Carbon Dioxide 30 mmol/L (22-30); Chloride 108 mmol/L (98-107); Estimated Creatinine Clearance 73 ml/min; Glucose 94 mg/dl (70-99); Potassium 3.8 mmol/L (3.5-5.1); Sodium 141 mmol/L (135-145); eGFR > 60.00
--- NOTE | 2024-10-22 13:16 | CM ---
Met with patient to obtain information for assessment. Patient stated that she lives with her spouse in [place] [facility] with no steps to enter. She described herself as typically independent with her bathing, dressing, ADLs and personal care.
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 She drives and can get to her own appointments and do all of her own shopping. Patient stated that she hasn't been feeling great but her spouse has been very supportive.
Patient denied any DME.
She has never had VN services.
Patient has a prescription plan and uses, [facility] in [place] on [phone]
Patient's PCP is, Raghav Corona.
Patient stated that physically she feels she is at her baseline and is hoping that testing will determine why she has not been feeling well. She confirmed she can return home on discharge.
STREETER letter reviewed and signed by patient. Now on chart.
Plan: Case management will continue to follow and assist with discharge planning. Home when cleared. Family will transport.
[2024-10-22] MEDS: ZOFRAN 4 MG IV (13:21)
--- NOTE | 2024-10-22 14:29 | W.PN.HOSP.TC ---
Today's Communication/Plan
-
Still having poor appetite and nausea. Needs to be evaluated for gastroparesis.
Assessment / Plan
Assessment / Plan
69 woman with nausea, vomiting, syncope and weight loss
1. Acute gastritis-like symptoms with several N/V , Diff etiology: Viral vs. other process (THC neg)
NO Diarrhea, HX gastric bypass surgery WITHOUT CT AP evidence of obstruction, Has small hiatal hernia
TSH 0.02
- Clear diet
-IV NS @ 80/H
- PRN Zofran
- GI consult
endoscopy appreciated. Patients main complaint remains anorexia and weight loss.
Colonoscopy 4 years ago.
Regular yearly mammography
No family cancer history
Please help initialize conversation about gastroparesis as possible cause of symptoms
2. KATHI due to dehydration for N/V - resolving
- Trend Cr in AM daily in response to IVF, so far 1.1--> 0.9
3. Recurrent syncope with prodromal symptoms preceded by tunnel vision before she syncopizes
Unremarkable EKG. NEG Head CT. Suspect vasovagal syncope associated with dehydration. MRI does not show obvious issue
- Fall precaution
- TLM Monitor
- ECHO for valvular pathology did not show problem.
4. Transient word finding difficulty that happened a few days ago
Low suspicion for acute CVA - likely part of syncopal syndrome
- NEG HCT
- No numbness tingling to the extremities.
- No isolated extremity weakness during those events.
- Brain MRI does not show acute disease
5. Suppressed TSH on LT4 150 mcgs daily, with HX Hypothyroid
- FT4 and FT3 wnr
- Reduce LT4 to 150 mcg daily except Friday
- Repeat TSH in 4 - 6 week
6. Chr insomnia
- cont all OP Meds
DVT Px: SCD
Full code
Anticipated Discharge: 24 - 48 hours
Subjective/Interval History
-
Date of Service: October 22, 2024
Continues to have poor appetite
Objective Data
-
Labs:
Laboratory Results
10/22/24 10/22/24
07:03 09:02
WBC 3.4 L
Hgb 11.2 L
Hct 33.5 L
Plt Count 198
Sodium Cancelled 141
Potassium Cancelled 3.8
Chloride Cancelled 108 H
Carbon Dioxide Cancelled 30
BUN Cancelled 5 L
Creatinine Cancelled 0.8
Glucose Cancelled 94
Calcium Cancelled 8.4
Vital Signs:
Vital Signs
Temp Pulse Resp BP Pulse Ox
98.2 F 81 16 138/72 97
10/22/24 12:31 10/22/24 12:31 10/22/24 12:31 10/22/24 12:31 10/22/24 12:31
I&O
10/21/24 10/22/24 10/23/24
06:59 06:59 06:59
Intake Total 1520 / 1520
Balance 1520 / 1520
Review of Systems
-
History Source: Patient
All other systems: Reviewed and negative
Abdomen/GI: Reports Nausea and Anorexia
Physical Exam
-
General: Well Developed, Well Nourished, No Apparent Distress and Comfortable
HEENT: Normocephalic and Moist Mucous Membranes
Respiratory: Clear to Auscultation
Cardiac: Regular Rhythm and S1/S2
GI: Soft, Nontender and Nondistended
Musculoskeletal: No Clubbing, No Cyanosis and No Edema
Skin: Warm and Dry
Neuro: Awake, Alert, Oriented and AO x 3
Psych: Calm
[2024-10-22] MEDS: MAGNESIUM OXIDE 250 MG PO (20:49)
[2024-10-22] MEDS: MELATONIN 10 MG PO (20:51)
[2024-10-22] MEDS: PRISTIQ 50 MG PO (20:51)
[2024-10-22] MEDS: PROTONIX 40 MG PO (20:51)
[2024-10-23] VITALS (8 sets, daily range): BP systolic 69–150; BP diastolic 48–78; PULSE 58–89
[2024-10-23] MEDS: SYNTHROID 150 MCG PO (06:17)
[2024-10-23 08:14] LABS: Hematocrit 31.4 % (37.0-47.0); Hemoglobin 10.2 g/dL (12.0-16.0); Mean Corp Hgb Conc. 32.5 g/dL (33.0-37.0); Mean Corpuscular Hgb 30.8 pg (27.0-31.0); Mean Corpuscular Volume 94.9 fL (81.0-99.0); Mean Platelet Volume 10.4 fL (7.4-10.4); Platelet Count 175 10^3/uL (130-400); Red Blood Cell Count 3.31 10^6/uL (4.20-5.40); Red Cell Dist. Width 13.4 % (11.5-14.5); White Blood Cell Count 3.7 10^3/uL (4.8-10.8)
[2024-10-23 08:20] LABS: Blood Urea Nitrogen 4 mg/dl (7-17); Calcium 8.1 mg/dl (8.4-10.2); Carbon Dioxide 31 mmol/L (22-30); Chloride 105 mmol/L (98-107); Estimated Creatinine Clearance 65 ml/min; Glucose 109 mg/dl (70-99); Potassium 3.6 mmol/L (3.5-5.1); Sodium 140 mmol/L (135-145); eGFR > 60.00
[2024-10-23] MEDS: TYLENOL 650 MG PO (10:37)
--- NOTE | 2024-10-23 12:18 | W.PN.HOSP.TC ---
Today's Communication/Plan
-
albumin bolus
diet changed to small frequent meals, suspected gastroparesis
midodrine with holding parameters
monitor orthostatic vitals
Assessment / Plan
Assessment / Plan
Physical Exam
General: no acute distress appears comfortable
HEENT: Normocephalic and Moist Mucous Membranes
Respiratory: Clear to Auscultation
Cardiac: Regular Rhythm and S1/S2
GI: Soft, Nontender and Nondistended
Musculoskeletal: No Clubbing, No Cyanosis and No Edema
Skin: Warm and Dry
Neuro: AOx3
Psych: Calm
69 woman with nausea, vomiting, syncope and weight loss
# Acute gastritis-like symptoms with several N/V , Diff etiology: Viral vs. other process (THC neg)
NO Diarrhea, HX gastric bypass surgery WITHOUT CT AP evidence of obstruction, Has small hiatal hernia
TSH 0.02
- Clear diet
-IV NS @ 80/H
- PRN Zofran
- GI consult appreciated
endoscopy appreciated. Patients main complaint remains anorexia and weight loss.
Colonoscopy 4 years ago.
Regular yearly mammography
No family cancer history
Suspected Gastroparesis, diet switched to small frequent meals
# Mild Dale likely d/t n/v
-initial Cr 1.1 improved to 0.08
-resolved
# Recurrent syncope with prodromal symptoms preceded by tunnel vision before she syncopize
Unremarkable EKG. NEG Head CT. Suspect vasovagal syncope associated with dehydration. MRI does not show obvious issue
- Fall precaution
- TLM Monitor
- ECHO appreciated EF 65-70% no significant change from prior ECHO 01/14/2024
# Transient word finding difficulty that happened a few days ago
Low suspicion for acute CVA - likely part of syncopal syndrome
- NEG HCT
- No numbness tingling to the extremities.
- No isolated extremity weakness during those events.
- Brain MRI noted no acute abn's
#Severe Orthostatic Hypotension, systolic 100 dropping to 60s
-likely d/t low volume vs hypoalbuminemia
-IV albumin supplementation provided
-midodrine started with holding parameters SBP>140 later reduced to >120
# Suppressed TSH on LT4 150 mcgs daily, with HX Hypothyroid
- FT4 and FT3 wnr
- Reduce LT4 to 150 mcg daily except Friday
- Repeat TSH in 4 - 6 week
# Chr insomnia
- cont home Melatonin
DVT Px: SCD
Full code
I spent a total of 50 minutes with the patient or on the floor. More than 50% of this time involved counseling and coordination of care.
Anticipated Discharge: 24 - 48 hours
Subjective/Interval History
-
Date of Service: October 23, 2024
Seen and examined at bedside in no acute distress resting comfortably in bed. Tolerating full liquid diet. Noted significant orthostatic hypotension, dropping to systolic 60s as per nurse, though strangely asymptomatic. Denies dizziness
lightheadedness. Reports ambulating without issues.
Objective Data
-
Labs:
Laboratory Results
10/23/24
07:02
WBC 3.7 L
Hgb 10.2 L
Hct 31.4 L
Plt Count 175
Sodium 140
Potassium 3.6
Chloride 105
Carbon Dioxide 31 H
BUN 4 L
Creatinine 0.9
Glucose 109 H
Calcium 8.1 L
Vital Signs:
Vital Signs
Temp Pulse Resp BP Pulse Ox
98.1 F 58 17 108/59 97
10/23/24 11:16 10/23/24 11:16 10/23/24 11:16 10/23/24 11:16 10/23/24 11:16
I&O
10/22/24 10/23/24 10/24/24
06:59 06:59 06:59
Intake Total 1520 / 1520
Balance 1520 / 1520
[2024-10-23] MEDS: FLEXBUMIN 100 IV (12:45)
[2024-10-23] MEDS: ProAmatine 5 MG PO (12:48)
[2024-10-23] MEDS: ProAmatine PO (17:34)
[2024-10-23] MEDS: PROTONIX 40 MG PO (20:53)
[2024-10-23] MEDS: MAGNESIUM OXIDE 250 MG PO (20:54)
[2024-10-23] MEDS: PRISTIQ 50 MG PO (20:56)
[2024-10-23] MEDS: MELATONIN 10 MG PO (20:56)
[2024-10-24 03:30] VITALS: BP 104/59
--- NOTE | 2024-10-24 06:23 | W.PN.HOSP.TC ---
Today's Communication/Plan
-
albumin bolus
monitor orthostatic vitals
midodrine with holding parameters
discharge planning
Assessment / Plan
Assessment / Plan
Physical Exam
General: no acute distress appears comfortable
HEENT: Normocephalic and Moist Mucous Membranes
Respiratory: Clear to Auscultation
Cardiac: Regular Rhythm and S1/S2
GI: Soft, Nontender and Nondistended
Musculoskeletal: No Clubbing, No Cyanosis and No Edema
Skin: Warm and Dry
Neuro: AOx3
Psych: Calm
69 woman with nausea, vomiting, syncope and weight loss
# Acute gastritis-like symptoms with several N/V , Diff etiology: Viral vs. other process (THC neg)
NO Diarrhea, HX gastric bypass surgery WITHOUT CT AP evidence of obstruction, Has small hiatal hernia
TSH 0.02
- Clear diet
-IV NS @ 80/H
- PRN Zofran
- GI consult appreciated
endoscopy appreciated. Patients main complaint remains anorexia and weight loss.
Colonoscopy 4 years ago.
Regular yearly mammography
No family cancer history
Suspected Gastroparesis, diet switched to small frequent meals
# Mild Dale likely d/t n/v
-initial Cr 1.1 improved to 0.08
-resolved
# Recurrent syncope with prodromal symptoms preceded by tunnel vision before she syncopize
Unremarkable EKG. NEG Head CT. Suspect vasovagal syncope associated with dehydration. MRI does not show obvious issue
- Fall precaution
- TLM Monitor
- ECHO appreciated EF 65-70% no significant change from prior ECHO 01/14/2024
# Transient word finding difficulty that happened a few days ago
Low suspicion for acute CVA - likely part of syncopal syndrome
- NEG HCT
- No numbness tingling to the extremities.
- No isolated extremity weakness during those events.
- Brain MRI noted no acute abn's
#Severe Orthostatic Hypotension, systolic 100 dropping to 60s
-likely d/t low volume vs hypoalbuminemia
-IV albumin supplementation provided
-midodrine started with holding parameters SBP>140 later reduced to >120
# Suppressed TSH on LT4 150 mcgs daily, with HX Hypothyroid
- FT4 and FT3 wnr
- Reduce LT4 to 150 mcg daily except Friday
- Repeat TSH in 4 - 6 week
# Chr insomnia
- cont home Melatonin
DVT Px: SCD
Full code
I spent a total of 45 minutes with the patient or on the floor. More than 50% of this time involved counseling and coordination of care.
Anticipated Discharge: Within 24 hours
Subjective/Interval History
-
Date of Service: October 24, 2024
Seen and examined at bedside in no acute distress sitting up comfortably in bed. Ray and granddaughter Winter present during evaluation. Noted orthostatic hypotension improved. Patient also denies symptoms of orthostatic hypotension.
Objective Data
-
Labs:
Laboratory Results
10/24/24
06:15
WBC Pending
Hgb Pending
Hct Pending
Plt Count Pending
Sodium Pending
Potassium Pending
Chloride Pending
Carbon Dioxide Pending
BUN Pending
Creatinine Pending
Glucose Pending
Calcium Pending
Total Bilirubin Pending
AST Pending
ALT Pending
Alkaline Phosphatase Pending
Vital Signs:
Vital Signs
Temp Pulse Resp BP Pulse Ox
98.2 F 59 18 104/59 96
10/24/24 03:30 10/24/24 03:30 10/24/24 03:30 10/24/24 03:30 10/24/24 03:30
I&O
10/22/24 10/23/24 10/24/24
06:59 06:59 06:59
Intake Total 1520 / 1520 390 / 390
Balance 1520 / 1520 390 / 390
[2024-10-24 06:34] LABS: Hematocrit 30.1 % (37.0-47.0); Hemoglobin 9.9 g/dL (12.0-16.0); Mean Corp Hgb Conc. 32.9 g/dL (33.0-37.0); Mean Corpuscular Volume 94.4 fL (81.0-99.0); Mean Platelet Volume 10.1 fL (7.4-10.4); Platelet Count 157 10^3/uL (130-400); Red Blood Cell Count 3.19 10^6/uL (4.20-5.40); Red Cell Dist. Width 13.2 % (11.5-14.5); White Blood Cell Count 4.8 10^3/uL (4.8-10.8)
[2024-10-24 06:59] LABS: ALT (SGPT) 31 U/L (0-35); AST (SGOT) 42 U/L (14-36); Albumin 2.3 g/dl (3.5-5.0); Alkaline Phosphatase 119 U/L (38-126); Blood Urea Nitrogen 14 mg/dl (7-17); Calcium 8.1 mg/dl (8.4-10.2); Carbon Dioxide 31 mmol/L (22-30); Chloride 104 mmol/L (98-107); Estimated Creatinine Clearance 73 ml/min; Glucose 111 mg/dl (70-99); Magnesium 2.3 mg/dl (1.6-2.3); Potassium 3.4 mmol/L (3.5-5.1); Sodium 139 mmol/L (135-145); Total Bilirubin 0.4 mg/dl (0.2-1.3); Total Protein 4.3 g/dl (6.3-8.2); eGFR > 60.00
[2024-10-24 07:30] VITALS: BP 112/65
[2024-10-24] MEDS: ProAmatine 2.5 MG PO (08:02)
[2024-10-24 11:50] VITALS: BP 120/75; BP 130/77; BP 145/78; PULSE 120; PULSE 85; PULSE 98
[2024-10-24] MEDS: ProAmatine PO ×2 (12:31→17:01)
[2024-10-24] MEDS: KCL 40 MEQ PO (12:57)
[2024-10-24] MEDS: FLEXBUMIN 100 IV (12:58)
[2024-10-24] MEDS: ZOFRAN 4 MG IV (14:41)
[2024-10-24 16:00] VITALS: BP 155/80
--- NOTE | 2024-10-24 18:47 | W.PN.UPDATE ---
Update Note
Progress Note Update
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
GI signed off please call with ?s.
[2024-10-24] MEDS: MELATONIN 10 MG PO (20:37)
[2024-10-24] MEDS: PRISTIQ 50 MG PO (20:37)
[2024-10-24] MEDS: PROTONIX 40 MG PO (20:37)
[2024-10-24] MEDS: MAGNESIUM OXIDE 250 MG PO (20:38)
[2024-10-24 23:15] VITALS: BP 102/59
[2024-10-25] MEDS: SYNTHROID 150 MCG PO (06:19)
--- NOTE | 2024-10-25 06:32 | W.PN.HOSP.TC ---
Today's Communication/Plan
-
discharge
Assessment / Plan
Assessment / Plan
Physical Exam
General: no acute distress appears comfortable
HEENT: Normocephalic and Moist Mucous Membranes
Respiratory: Clear to Auscultation
Cardiac: Regular Rhythm and S1/S2
GI: Soft, Nontender and Nondistended
Musculoskeletal: No Clubbing, No Cyanosis and No Edema
Skin: Warm and Dry
Neuro: AOx3
Psych: Calm
69 woman with nausea, vomiting, syncope and weight loss
# Acute gastritis-like symptoms with several N/V , Diff etiology: Viral vs. other process (THC neg)
NO Diarrhea, HX gastric bypass surgery WITHOUT CT AP evidence of obstruction, Has small hiatal hernia
TSH 0.02
- Clear diet advanced to low residue
-IV NS @ 80/H completed
- PRN Zofran
- GI consult appreciated EGD performed results appreciated unremarkable
Patients main complaint remains anorexia and weight loss.
Colonoscopy 4 years ago.
Regular yearly mammography
No family cancer history
Suspected Gastroparesis, diet switched to small frequent meals, tolerating well
# Mild Dale likely d/t n/v
-initial Cr 1.1 improved to 0.08
-resolved
# Recurrent syncope with prodromal symptoms preceded by tunnel vision before she syncopize (likely due to severe orthostatic hypotension as noted below)
Unremarkable EKG. NEG Head CT. Suspect vasovagal syncope associated with dehydration. MRI does not show obvious issue
- Fall precaution
- TLM Monitor
- ECHO appreciated EF 65-70% no significant change from prior ECHO 01/14/2024
# Transient word finding difficulty that happened a few days ago
Low suspicion for acute CVA - likely part of syncopal syndrome (orthostatic hypotension)
- NEG HCT
- No numbness tingling to the extremities.
- No isolated extremity weakness during events.
- Brain MRI noted no acute abn's
#Severe Orthostatic Hypotension, systolic 100 dropping to 60s
-likely d/t low volume vs hypoalbuminemia
-IV albumin supplementation provided
-midodrine started with holding parameters >120
-Orthostatic hypotension since improved with albumin boluses, has not consistently required midodrine
# Suppressed TSH on LT4 150 mcgs daily, with HX Hypothyroid
- FT4 and FT3 wnr
- Reduce LT4 to 150 mcg daily except Friday
- Repeat thyroid function test in 1 month of discharge
# Chr insomnia
- cont home Melatonin
DVT Px: SCD
Full code
Total Time Preparing Discharge ___40____ minutes including examination of the patient, summary of the hospital stay, instructions for continuing care to all relevant caregivers; and preparation of discharge records, prescriptions, and referral
forms if necessary.
Anticipated Discharge: Today
Subjective/Interval History
-
Date of Service: October 25, 2024
Seen and examined at bedside in no acute distress. Overall reports feeling well. Ambulating without issues.
Objective Data
-
Labs:
Laboratory Results
10/25/24
06:00
WBC Pending
Hgb Pending
Hct Pending
Plt Count Pending
Sodium Pending
Potassium Pending
Chloride Pending
Carbon Dioxide Pending
BUN Pending
Creatinine Pending
Glucose Pending
Calcium Pending
Total Bilirubin Pending
AST Pending
ALT Pending
Alkaline Phosphatase Pending
Vital Signs:
Vital Signs
Temp Pulse Resp BP Pulse Ox
97.7 F 79 18 102/59 96
10/24/24 23:15 10/24/24 23:15 10/24/24 23:15 10/24/24 23:15 10/24/24 23:15
I&O
10/23/24 10/24/24 10/25/24
06:59 06:59 06:59
Intake Total 390 / 390 800 / 800
Balance 390 / 390 800 / 800
[2024-10-25 07:00] VITALS: BP 108/66
[2024-10-25] MEDS: ProAmatine 2.5 MG PO (07:57)
[2024-10-25 09:18] LABS: Hematocrit 32.5 % (37.0-47.0); Hemoglobin 10.4 g/dL (12.0-16.0); Mean Corpuscular Hgb 30.8 pg (27.0-31.0); Mean Corpuscular Volume 96.2 fL (81.0-99.0); Mean Platelet Volume 10.6 fL (7.4-10.4); Platelet Count 169 10^3/uL (130-400); Red Blood Cell Count 3.38 10^6/uL (4.20-5.40); Red Cell Dist. Width 13.4 % (11.5-14.5); White Blood Cell Count 4.9 10^3/uL (4.8-10.8)
[2024-10-25 09:53] LABS: ALT (SGPT) 31 U/L (0-35); AST (SGOT) 36 U/L (14-36); Albumin 2.9 g/dl (3.5-5.0); Alkaline Phosphatase 115 U/L (38-126); Blood Urea Nitrogen 12 mg/dl (7-17); Calcium 8.6 mg/dl (8.4-10.2); Carbon Dioxide 31 mmol/L (22-30); Chloride 103 mmol/L (98-107); Estimated Creatinine Clearance 73 ml/min; Glucose 91 mg/dl (70-99); Magnesium 2.3 mg/dl (1.6-2.3); Phosphorus 4.4 mg/dl (2.5-4.5); Potassium 3.8 mmol/L (3.5-5.1); Sodium 140 mmol/L (135-145); Total Bilirubin 0.6 mg/dl (0.2-1.3); eGFR > 60.00
[2024-10-25 11:05] VITALS: BP 117/62; BP 120/62; BP 128/66; BP 132/63; PULSE 68; PULSE 72; PULSE 83; O2SAT 96
[2024-10-25 11:11] VITALS: BP 120/62; BP 128/60; BP 132/63; PULSE 60; PULSE 72; PULSE 83
--- NOTE | 2024-10-25 11:26 | PTOTSP ---
PATIENT ABLE TO MOBILIZE INDEPENDENTLY ON LEVEL SURFACES WELL ELEVATIONS WITHOUT COMPLAINTS OF LIGHTHEADEDNESS, DIZZINESS, NAUSEA, LE WEAKNESS OR ORTHOSTASIS. THEREFORE, PATIENT REQUIRING NO FURTHER ACUTE CARE SKILLED P.T. AT THIS TIME. WILL
DISCHARGE FROM P.T. SERVICES.
--- NOTE | 2024-10-25 11:56 | W.DCSUMMARY ---
Discharge Summary
Discharge Data
Date of Admission: 10/20/24
Date of Discharge: 10/25/24
-
Pending Results: No
Hospital Course
69F with nausea, vomiting, syncope and weight loss. Acute gastritis-like symptoms with severe N/V, Diff etiology: Viral vs. other process (THC neg)
NO Diarrhea, HX gastric bypass surgery WITHOUT CT AP evidence of obstruction, Has small hiatal hernia. Clear diet gradually advanced to low residue. IV NS @ 80/H completed. PRN Zofran. GI consult appreciated EGD performed results appreciated
unremarkable. Patients main complaint remains anorexia and weight loss. Colonoscopy 4 years ago. Regular yearly mammography. No family cancer history. Suspected Gastroparesis, diet switched to small frequent meals, tolerated well. Mild Dale
likely d/t n/v, initial Cr 1.1 improved to 0.08. Recurrent syncope with prodromal symptoms preceded by tunnel vision before she Syncopize (likely due to severe orthostatic hypotension as noted below). Unremarkable EKG. NEG Head CT. Suspect
vasovagal syncope associated with dehydration. MRI noted no acute abn's. ECHO appreciated EF 65-70% no significant change from prior ECHO 01/14/2024. Transient word finding difficulty that happened a few days ago likely part of syncopal syndrome
(orthostatic hypotension). Severe Orthostatic Hypotension, systolic 100 dropping to 60s, likely d/t low volume vs hypoalbuminemia. IV albumin supplementation provided, midodrine started with holding parameters >120. Orthostatic hypotension since
improved with albumin boluses, did not consistently require midodrine. Suppressed TSH on LT4 150 mcgs daily, with HX Hypothyroid, FT4 and FT3 wnl. Reduced LT4 from 150 mcg daily to daily except Friday. Repeat thyroid function test in 1 month of
discharge recommended. Medically stable, patient was discharged home with outpatient follow up recommendations.
Discharge Plan
-
Patient Disposition: Home (Routine Discharge)
Discharge Diagnosis/Procedures: Acute gastritis possibly viral
Suspected Gastroparesis
Mild Acute Kidney Injury resolved
Syncope likely due to severe orthostatic hypotension due to low volume/hypoalbuminemia (resolving)
Abnormal Thyroid Function Test
Mild Anemia
Condition: Fair
Diet: Low Residue
Additional Diets: small frequent meals six times a day
Activity: As tolerated
Driving Restrictions: As prior to admission
Bathing Restrictions: None
Blood Work: Repeat CBC with primary care provider in 1 week of discharge and Thyroid Function Test in 1 month of discharge.
Activity Restrictions/Additional Instructions:
Please follow up with primary care provider in 1 week of discharge and keep your appointment with GI
Due to excessively low TSH, though T4 within normal limits, concern for possible iatrogenic hyperthyroidism, it is recommended that you skip dosing Synthroid one day a week (Friday arbitrarily designated).
At this time it is recommended that you avoid NSAID (ex ibuprofen, aspirin, naproxen, etc) use, including NSAID containing medications such as Excedrin- further usage likely to lead to return/worsening of symptoms.
Please take medications as prescribed/recommended and follow up with primary care provider and/or other healthcare provider involved in your care for refills and/or further adjustment to your medication regimen as necessary.
Instructions: Gastroparesis (delayed gastric emptying)
Referrals:
Kathy Magana MD [Active] -
Raghav Vizcarra DO [Family Provider] - in one week
Prescriptions:
Continued
riboflavin (vitamin B2) 100 mg Tablet
100 mg PO DAILY
rizatriptan 10 mg Tablet
10 mg PO DAILYPRN PRN (Reason: headache)
pantoprazole 40 mg Tablet,Delayed Release (Dr/Ec)
40 mg PO HS
cyanocobalamin (vitamin B-12) 1,000 mcg/mL Solution
1,000 mcg SC WE
diazepam 5 mg Tablet
5 mg PO HSPRN PRN (Reason: restless leg)
magnesium oxide 250 mg magnesium Tablet
250 mg PO HS
desvenlafaxine succinate 50 mg Tablet Extended Release 24 Hr
50 mg PO HS
melatonin 10 mg Tablet
10 mg PO HS MDD SLEEP
isosorbide dinitrate 30 mg Tablet
15 mg PO DAILY
Changed
levothyroxine 150 mcg Tablet
150 mcg PO .Carolyn Qty: 0 0RF
Rx Instructions:
Skip Friday dose
Discontinued
Excedrin Migraine 250-250-65 mg Tablet
2 tab PO Q6HPRN PRN (Reason: headache)
Discharge Orders:
Discharge Patient (As Directed); Ordered 10/25/24
Ordered By: Susanna Blair
Discharge Date and Time
Discharge Date/Time: 10/25/24 13:30
Print Language: MAORI
[2024-10-25] MEDS: FLUAD (65 yr+) 2024-2025 FORMULA 0.5 ML IM (12:48)
[2024-10-25 13:15] VITALS: BP 115/63
== END 2024-10-25 13:30 | disposition home or self-care (01) | DRG 312 ==
LOC: 3 WEST ACU 07:03
PROVIDERS: Emergency Medicine; Internal Medicine; Internal Medicine Gastroenterology; Nurse Practitioner Family; ADMITTING PHYSICIAN Internal Medicine; ATTENDING PHYSICIAN Internal Medicine; CONSULT PHYSICIAN Internal Medicine; EMERGENCY PHYSICIAN Student in an Organized Health Care Education/Training Program; FAMILY PHYSICIAN Family Medicine
PROC: 0DJ08ZZ Inspection of Upper Intestinal Tract, Via Natural or Artificial Opening Endoscopic (ICD-10-PCS; 2024-10-22)
PROC: 3E02340 Introduction of Influenza Vaccine into Muscle, Percutaneous Approach (ICD-10-PCS; 2024-10-25)
DX: I95.1 Orthostatic hypotension (principal); N17.9 Acute kidney failure, unspecified; A08.4 Viral intestinal infection, unspecified; E03.9 Hypothyroidism, unspecified; D50.9 Iron deficiency anemia, unspecified; E86.0 Dehydration; G43.909 Migraine, unspecified, not intractable, without status migrainosus; G25.81 Restless legs syndrome; F51.04 Psychophysiologic insomnia; E88.09 Other disorders of plasma-protein metabolism, not elsewhere classified; K44.9 Diaphragmatic hernia without obstruction or gangrene; K31.84 Gastroparesis; Z98.84 Bariatric surgery status; Z90.49 Acquired absence of other specified parts of digestive tract; Z79.890 Hormone replacement therapy; Z79.82 Long term (current) use of aspirin; Z79.899 Other long term (current) drug therapy; Z23 Encounter for immunization
CPT/HCPCS: 70450; 70551; 74177; 80048; 80053; 80306; 80307; 81003; 81015; 83735; 84100; 84439; 84443; 84481; 85025; 85027; 86803; 86850; 86900; 86901; 90662; 93005; 93306; 96360; 97116; 97162; 99285; G0008; P9047; Q9967

== ENCOUNTER → 2024-12-08 07:20 | Outpatient (REF) | payer MEDICARE, SELFPAY | LOC: RAD 07:20 | PROVIDERS: ATTENDING PHYSICIAN Internal Medicine Gastroenterology; FAMILY PHYSICIAN Family Medicine | DX: R68.81 Early satiety (principal) | CPT/HCPCS: 78264; A9541 ==

== ENCOUNTER → 2024-12-09 18:51 | Outpatient (REF) | payer MEDICARE, SELFPAY | LOC: MRI 18:51 | PROVIDERS: ATTENDING PHYSICIAN Internal Medicine Gastroenterology; FAMILY PHYSICIAN Family Medicine | DX: R63.4 Abnormal weight loss (principal); R10.13 Epigastric pain; K86.89 Other specified diseases of pancreas | CPT/HCPCS: 74183; A9575 ==